=== PATIENT | male | born 1965 | race Hispanic/Latino ===

== ENCOUNTER → 2025-10-02 | Outpatient (CLI) | payer OTHER ==
--- NOTE | 2025-10-03 07:57 | HMCIMG ---
EXAM: CR Lumbar Spine, 3 View. CLINICAL HISTORY: LOW BACK PAIN COMPARISON: None provided. FINDINGS: BONES: No acute fracture or aggressive appearing osseous lesion. ALIGNMENT: Alignment is within normal limits. No significant scoliosis. DISCS / DEGENERATIVE CHANGES: The disc spaces are preserved. Few upper lumbar bridging osteophytes and lower lumbar anterior marginal osteophytes are present. SOFT TISSUES: The soft tissues are unremarkable. IMPRESSION: No acute lumbar spine abnormality evident. Few upper lumbar bridging osteophytes and lower lumbar anterior marginal osteophytes reflects early degenrative changes. /[place]
== END | disposition home or self-care (01) ==
LOC: RAH 11:10
PROVIDERS: ATTEND Internal Medicine
DX: M47.816 Spondylosis without myelopathy or radiculopathy, lumbar region (principal); M54.50 Low back pain, unspecified; M25.78 Osteophyte, vertebrae
CPT/HCPCS: 72100